=== PATIENT | male | born 1975 | race Caucasian/White ===

== ENCOUNTER → 2020-10-31 15:34 | Outpatient (CLI) | payer OTHER, SELFPAY ==
--- NOTE | ~2020-10-31 | XR_ITS ---
EXAMINATION: XR shoulder RT min 2V DATE: 10/31/2020 15:47 INDICATION: Right shoulder injury. TECHNIQUE: 4 views of right shoulder were obtained. COMPARISON: None. FINDINGS: Bone alignment is normal. No fracture. There is mild osteoarthritis of glenohumeral joint. Acromioclavicular joint is normal. IMPRESSION: 1. Mild glenohumeral joint osteoarthritis. Reviewed, dictated and finalized at location A.
== END ==
PROVIDERS: PCP Family Medicine; Visit Provider Family Medicine
DX: M19.011 Primary osteoarthritis, right shoulder (principal)
CPT/HCPCS: 73030